=== PATIENT | male | born 2005 | race Caucasian/White ===

== ENCOUNTER 2024-01-16 05:51 | Emergency (ER) | payer BC, OTHER | END 2024-01-16 06:44 | disposition left against medical advice (07) | LOC: MADERS 05:51 | DX: S20.20XA Contusion of thorax, unspecified, initial encounter (principal); F10.10 Alcohol abuse, uncomplicated; F17.290 Nicotine dependence, other tobacco product, uncomplicated; V89.2XXA Person injured in unspecified motor-vehicle accident, traffic, initial encounter ==